=== PATIENT | male | born 2000 | race Caucasian/White ===

== ENCOUNTER 2018-05-11 22:34 | Emergency (ER) | payer BC, OTHER ==
[2018-05-11] MEDS ORDERED: ASPIRIN 81 MG CHEW TAB ONE (22:56)
[2018-05-11] MEDS ORDERED: BUDESONIDE 0.5MG/2ML AMPUL.NEB NEB SCH (23:00)
[2018-05-11] MEDS ORDERED: BUDESONIDE 0.5MG/2ML AMPUL.NEB NEB ONE (23:11)
[2018-05-11 23:13] LABS: eGFR (Non-African) > 60
[2018-05-11] MEDS ORDERED: ALBUTEROL SULFATE 2.5 MG/3 ML AMPUL.NEB NEB ONE (23:40)
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
[2018-05-12 00:23] VITALS: BP 117/73
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
[2018-05-14 11:40] LABS: MCH. 30.2; MCV 85.8; PLATELET COUNT 234
[2018-05-14 11:41] LABS: LYMPH ABS # 2.6; MONOCYTE ABS # 0.7
== END 2018-05-12 00:45 | disposition home or self-care (01) ==
LOC: ED 22:34
DX: R07.89 Other chest pain (principal)
CPT/HCPCS: 71046; 80053; 85025; 93005; J7626; 94640; S1016